=== PATIENT | male | born 1965 | race Caucasian/White ===

== ENCOUNTER 2020-01-17 22:10 | Observation (INO) ==
[2020-01-17] MEDS ORDERED: Isovue-370 500 ML BOTTLE IVP ONE (22:36)
[2020-01-17 22:48] LABS: Nucleated Red Blood Cells 0.3 /100 WBC (0); Red Cell Distribution Width 17.1 % (11.5-14.5)
[2020-01-17 22:49] LABS: Hematocrit 19.2 % (37.5-50.1); Mean Corpuscular HGB Conc 30.2 g/dL (31.6-35.5); Mean Corpuscular Hemoglobin 27.2 pg (28.0-33.3); Mean Corpuscular Volume 90.1 fL (83.0-100.0); Mean Platelet Volume 10.1 fL (9.4-12.4); Platelet Count 264 K/mcL (140-400); Red Blood Count 2.13 M/mcL (4.19-5.50); White Blood Count 11.6 K/mcL (4.3-11.1)
[2020-01-17 22:56] LABS: Hemoglobin 5.8 g/dL (12.9-16.9)
[2020-01-17 23:08] LABS: BUN/Creatinine Ratio 12 (6-26); Blood Urea Nitrogen 11 mg/dL (6-20); Carbon Dioxide 19 mEq/L (23-29); Chloride 104 mEq/L (98-107); Glucose 124 mg/dL (70-105); Osmolality,Calculated 277 (280-300); Potassium 3.7 mEq/L (3.5-5.1); Sodium 133 mEq/L (136-145); Troponin I < 0.03 ng/mL (< 0.04); eGFR For African Americans > 60 (> 60); eGFR For Non-African Americans > 60 (> 60)
[2020-01-17 23:15] LABS: Eosinophils # 0.5 K/mcL (0.0-0.6); Lymphocytes # 1.6 K/mcL (0.6-4.6); Monocytes # 0.7 K/mcL (0.0-1.3); Neutrophils # 8.8 K/mcL (1.6-8.9); Platelet Estimate Normal (Normal)
[2020-01-17 23:17] LABS: Anisocytosis 1+ (Not Present); Polychromasia 1+ (Not Present)
[2020-01-17] MEDS ORDERED: 0.9 % Sodium Chloride 500 ML ONE (23:42)
[2020-01-18] MEDS ORDERED: Acetaminophen 325 MG TABLET PO PRN (03:43)
[2020-01-18] MEDS ORDERED: Naloxone 0.4 MG/ML INJ IVP PRN (03:43)
[2020-01-18] MEDS ORDERED: *HR* Promethazine 25 MG/ML VIAL IVP PRN (03:43)
[2020-01-18] MEDS: 0.9 % Sodium Chloride 1,000 ML IVC SCH ×2 (05:27→16:11)
[2020-01-18 06:29] LABS: Bilirubin,Urine Negative (Negative); Blood,Urine Negative (Negative); Clarity,Urine Clear (Clear); Color,Urine Light-Orange (Yellow); Glucose,Urine (UA) Normal (Normal); Ketones,Urine Negative (Negative); Leukocyte Esterase,Urine Negative (Negative); Nitrite,Urine Negative (Negative); Protein,Urine Trace mg/dL (Neg-Trace); Specific Gravity,Urine > 1.030 (1.010-1.025); Urobilinogen,Urine Normal (Normal)
[2020-01-18 06:52] LABS: INR 1.2; Prothrombin Time 14.1 Seconds (9.4-12.1)
[2020-01-18 07:29] LABS: % Iron Saturation 40 % (20-55); Alanine Aminotransferase 31 Units/L (7-52); Albumin 3.1 g/dL (3.5-5.7); Albumin/Globulin Ratio 1.1 (1.1-2.2); Alkaline Phosphatase 96 Units/L (34-104); Aspartate Amino Transferase 59 Units/L (13-39); BUN/Creatinine Ratio 13 (6-26); Bilirubin,Total 2.3 mg/dL (0.3-1.0); Blood Urea Nitrogen 11 mg/dL (6-20); Calcium 7.9 mg/dL (8.6-10.3); Carbon Dioxide 19 mEq/L (23-29); Chloride 105 mEq/L (98-107); Chol/HDL Ratio 4.5 (0-4.9); Cholesterol 108 mg/dL (< 200); Globulin 2.9 g/dL (2.4-3.5); Glucose 128 mg/dL (70-105); HDL Cholesterol 24 mg/dL (40-59); Iron 151 mcg/dL (65-175); LDL Cholesterol,Calculated 68 mg/dL (0-99); Magnesium 1.9 mg/dL (1.6-2.6); Osmolality,Calculated 279 (280-300); Phosphorous 1.9 mg/dL (2.7-4.5); Potassium 3.5 mEq/L (3.5-5.1); Sodium 134 mEq/L (136-145); Transferrin 267 mg/dL (203-362); Triglycerides 82 mg/dL (< 150); eGFR For African Americans > 60 (> 60); eGFR For Non-African Americans > 60 (> 60)
[2020-01-18 07:30] LABS: Carcinoembryonic Antigen 1.7 ng/mL (Less than 5.0); Ferritin 11 ng/mL (20-250); Thyroid Stimulating Hormone 2.146 mcIU/mL (0.340-5.600)
[2020-01-18 07:50] LABS: Basophils # 0.1 K/mcL (0.0-0.2); Basophils % 0.5 %; Eosinophils # 0.3 K/mcL (0.0-0.6); Eosinophils % 2.9 %; Hematocrit 22.2 % (37.5-50.1); Hemoglobin 6.9 g/dL (12.9-16.9); Immature Granulocytes % 0.5 % (0-4); Lymphocytes # 1.7 K/mcL (0.6-4.6); Lymphocytes % 15.1 %; Mean Corpuscular HGB Conc 31.1 g/dL (31.6-35.5); Mean Corpuscular Hemoglobin 27.5 pg (28.0-33.3); Mean Corpuscular Volume 88.4 fL (83.0-100.0); Mean Platelet Volume 10.7 fL (9.4-12.4); Monocytes # 1.5 K/mcL (0.0-1.3); Monocytes % 13.5 %; Neutrophils # 7.4 K/mcL (1.6-8.9); Nucleated Red Blood Cells 0.2 /100 WBC (0); Platelet Count 251 K/mcL (140-400); Red Blood Count 2.51 M/mcL (4.19-5.50); Red Cell Distribution Width 16.1 % (11.5-14.5); Segmented Neutrophils % 67.5 %
[2020-01-18] MEDS: Pantoprazole 40 MG in 0.9 % Sodium Chloride Mini Bag 100 ML IVC SCH ×2 (08:12→14:26)
[2020-01-18 09:57] LABS: Estimated Average Glucose 148 mg/dl
[2020-01-18] MEDS ORDERED: Lidocaine -MPF 2% 2 ML VIAL ONE (11:32)
[2020-01-18] MEDS ORDERED: 0.9 % Sodium Chloride 250 ML IVC SCH ×2 (12:00→17:00)
[2020-01-18] MEDS ORDERED: 0.9 % Sodium Chloride 250 ML ONE ×2 (12:43→17:49)
[2020-01-18 16:09] LABS: Hematocrit 21.7 % (37.5-50.1)
[2020-01-18] MEDS ORDERED: Isovue-370 500 ML BOTTLE IVP ONE (16:51)
[2020-01-18] MEDS: Iron Sucrose Complex 400 MG in 0.9 % Sodium Chloride 250 ML IVPB SCH (17:31)
[2020-01-18 22:33] LABS: Hematocrit 24.2 % (37.5-50.1); Hemoglobin 7.5 g/dL (12.9-16.9)
[2020-01-19 05:50] LABS: Hemoglobin 7.6 g/dL (12.9-16.9); Mean Corpuscular HGB Conc 31.7 g/dL (31.6-35.5); Mean Corpuscular Hemoglobin 27.8 pg (28.0-33.3); Mean Corpuscular Volume 87.9 fL (83.0-100.0); Mean Platelet Volume 10.4 fL (9.4-12.4); Platelet Count 210 K/mcL (140-400); Red Blood Count 2.73 M/mcL (4.19-5.50); Red Cell Distribution Width 15.8 % (11.5-14.5); White Blood Count 10.5 K/mcL (4.3-11.1)
[2020-01-19 06:08] LABS: BUN/Creatinine Ratio 10 (6-26); Blood Urea Nitrogen 9 mg/dL (6-20); Calcium 7.7 mg/dL (8.6-10.3); Carbon Dioxide 19 mEq/L (23-29); Chloride 111 mEq/L (98-107); Glucose 81 mg/dL (70-105); Osmolality,Calculated 282 (280-300); Potassium 3.7 mEq/L (3.5-5.1); Sodium 137 mEq/L (136-145); eGFR For African Americans > 60 (> 60); eGFR For Non-African Americans > 60 (> 60)
[2020-01-19] MEDS: Iron Sucrose Complex 400 MG in 0.9 % Sodium Chloride 250 ML IVPB SCH (08:48)
[2020-01-19] MEDS ORDERED: Pantoprazole 40 MG VIAL IVP SCH (09:00)
[2020-01-19 11:05] VITALS: BP 120/69
== END 2020-01-19 12:06 | disposition home or self-care (01) ==
LOC: 2ANU 22:10 → EMEROOARM 22:10 → SUATTDRO 01-18 02:42 → 2ANU 01-18 03:14
PROVIDERS: ADMIT Internal Medicine; ATTEND Internal Medicine